=== PATIENT | male | born 1990 | race Caucasian/White ===

== ENCOUNTER 2022-11-18 15:42 | Emergency (ER) | payer BC ==
[2022-11-18 17:28] LABS: BASOPHILS ABSOLUTE AUTO 0.02 K/mm3 (0.01-0.08); BASOPHILS PERCENT AUTO 0.1 % (0.1-1.2); EOSINOPHILS PERCENT AUTO 0 (0.8-7.0); HEMATOCRIT 37.8 % (40.1-51.0); HEMOGLOBIN 12.9 gm/dl (13.7-17.5); IMMATURE GRAN ABSOLUTE AUTO 0.05 K/mm3 (0.00-0.10); IMMATURE GRAN PERCENT AUTO 0.3 % (<=1.0); LYMPHOCYTES ABSOLUTE AUTO 2.09 K/mm3 (1.32-3.57); MEAN CORPUSCULAR HEMOGLOBIN 29.3 pg (25.7-32.2); MEAN CORPUSCULAR HGB CONC 34.1 g/dl (32.2-35.5); MEAN CORPUSCULAR VOLUME 85.9 fl (79.0-92.2); MEAN PLATELET VOLUME 8.5 fl (9.4-12.3); MONOCYTES ABSOLUTE AUTO 1.29 K/mm3 (0.30-0.82); MONOCYTES PERCENT AUTO 7.4 % (5.3-12.2); NEUTROPHILS ABSOLUTE AUTO 13.93 K/mm3 (1.78-5.38); NEUTROPHILS PERCENT AUTO 80.2 % (34.0-67.9); PLATELET COUNT,PLT 296 K/mm3 (163-337); WHITE BLOOD CELL COUNT,WBC 17.38 K/mm3 (4.23-9.07)
[2022-11-18 17:38] LABS: A/G RATIO 0.8 (1-2); ALBUMIN 3.2 g/dl (3.4-5.0); ANION GAP 13.9 (5-15); BILIRUBIN TOTAL 1.5 mg/dL (0.2-1.0); BUN/CREATININE RATIO 11.8 (14-18); CALCIUM 8.9 mg/dL (8.5-10.1); CREATININE 1.1 mg/dL (0.7-1.3); EST CRCL DRUG DOSING (CG) 106.74 mL/min; POTASSIUM,K 3.9 mEq/L (3.5-5.1); PROTEIN TOTAL,TP 7.1 g/dl (6.4-8.2)
[2022-11-18 17:40] LABS: C-REACTIVE PROTEIN 12.7 mg/dL (<1.0)
[2022-11-18] MEDS ORDERED: Acetaminophen 325 MG Tab PO ONE (17:52)
[2022-11-18] MEDS ORDERED: Cyclobenzaprine 10 MG Tab PO ONE (17:52)
[2022-11-18] MEDS ORDERED: Amoxicillin 500 MG Cap PO ONE (17:54)
[2022-11-18] MEDS ORDERED: Doxycycline 100 MG in Sodium Chloride 0.9% 100 ML IV ONE (17:55)
[2022-11-18] MEDS ORDERED: Doxycycline Monohydrate 100 MG Cap PO ONE (18:13)
== END 2022-11-18 18:30 | disposition home or self-care (01) ==
LOC: MERGE 15:42 → JD.ED 15:42
DX: J18.9 Pneumonia, unspecified organism (principal)
CPT/HCPCS: 36415; 71046; 80053; 85025; 85379; 86140; 99285; A9270